=== PATIENT | female | born 1980 | race Two or more races ===

== ENCOUNTER 2018-07-14 18:00 | Emergency (ER) | payer MEDICAID ==
[~2018-07-14] VITALS: Ht 154.9 cm; Wt 81.6 kg
[2018-07-14 19:39] VITALS: BP 147/94
[2018-07-14] MEDS ORDERED: IBUPROFEN 600 MG TABLET PO ONE (20:05)
[2018-07-14] MEDS: IBUPROFEN 600 MG TABLET PO ONE (20:06)
== END 2018-07-14 22:30 | disposition home or self-care (01) ==
LOC: ER 18:00
DX: S52.571A Other intraarticular fracture of lower end of right radius, initial encounter for closed fracture (principal); S52.611A Displaced fracture of right ulna styloid process, initial encounter for closed fracture; W01.0XXA Fall on same level from slipping, tripping and stumbling without subsequent striking against object, initial encounter; Y93.89 Activity, other specified; Y92.89 Other specified places as the place of occurrence of the external cause; Y99.8 Other external cause status
CPT/HCPCS: 73090-TC; 73110